=== PATIENT | male | born 1980 | race Caucasian/White ===

== ENCOUNTER → 2017-02-22 | Outpatient (CLI) | payer OTHER | END | disposition home or self-care (01) | LOC: C.RDSM 09:54 | PROVIDERS: ATTEND Orthopaedic Surgery Sports Medicine | DX: M70.21 Olecranon bursitis, right elbow (principal) ==

== ENCOUNTER → 2017-04-06 | Outpatient (CLI) | payer OTHER | END | disposition home or self-care (01) | LOC: C.RDSM 11:38 | PROVIDERS: ATTEND Orthopaedic Surgery Sports Medicine | DX: M25.561 Pain in right knee (principal) ==

== ENCOUNTER → 2017-04-11 | Outpatient (CLI) | payer OTHER ==
--- NOTE | 2017-04-11 08:25 | DIAGNOSTIC IMAGING REPORT ---
RIGHT KNEE MRI HISTORY: RT KNEE PAIN Right COMPARISON STUDY: Right knee 04/06/2017. TECHNIQUE: Multiplanar multisequence MRI of the right knee was performed according to standard department protocol without the use of contrast. FINDINGS: Menisci: The medial and lateral menisci are intact. Ligaments: The anterior and posterior cruciate ligaments are intact. The medial and lateral collateral ligaments are normal in appearance. Extensor mechanism: The quadriceps tendon and patellar ligament are intact. Articular cartilage and bone: The articular cartilage is intact, and normal marrow signal intensity is seen throughout the imaged osseous structures. Joint effusion: None. Soft tissues: Mild thickening of the distal iliotibial band best seen on axial image 11. However, there is no surrounding edema. IMPRESSION: 1. Mild thickening of the distal iliotibial band. 2. Otherwise, no evidence for internal derangement within the knee. Electronically signed by: Donavan Cuenca M.D. 04/11/2017 8:24 AM Dictated Date/Time: 04/11/2017 8:19 AM
== END | disposition home or self-care (01) ==
LOC: C.MRI 07:08
PROVIDERS: ATTEND Orthopaedic Surgery Sports Medicine
DX: M25.561 Pain in right knee (principal); M22.41 Chondromalacia patellae, right knee

== ENCOUNTER 2017-10-17 18:09 | Emergency (ER) | payer OTHER ==
[~2017-10-17] VITALS: Ht 188 cm; Wt 101.6 kg
[2017-10-17 18:28] VITALS: TEMP 36.7; Ht 188 cm; Wt 101.6 kg
[2017-10-17] MEDS: IBUPROFEN 800 MG TAB PO STA (18:58)
--- NOTE | 2017-10-17 19:12 | DIAGNOSTIC IMAGING REPORT ---
CT HEAD WITHOUT CONTRAST (CT) CLINICAL HISTORY: Head pain status post trauma COMPARISON STUDY: No previous studies for comparison. TECHNIQUE: Axial CT of the brain is performed from the vertex to the skull base. IV contrast was not administered for this examination. A dose lowering technique was utilized adhering to the principles of ALARA. CT DOSE: FINDINGS: No intra or extra-axial mass lesions are visualized. There is no CT evidence of acute cortical infarction. There is no evidence of midline shift. There is no acute hemorrhage. No calvarial fractures are visualized. There is no evidence of pathologic ventricular dilatation. There is no evidence of acute sinusitis IMPRESSION: Normal noncontrast head CT. Electronically signed by: Timmy Baker M.D. 10/17/2017 7:11 PM Dictated Date/Time: 10/17/2017 7:10 PM
--- NOTE | 2017-10-17 19:14 | EMERGENCY ROOM VISIT NOTE ---
History First contact with patient: 18:32 Chief Complaint: FACIAL PAIN/INJURY Stated Complaint: NOSE/CHEEK INJURY History of Present Illness The patient is a 37 year old male who presents to the Emergency Room with complaints of an injury to the right side of his face. He states that he was playing catch with his teenage son and was hit in the right side of the face with a baseball. There was no loss of consciousness. He reports a headache as well as swelling to the right side of the face. He states he has some numbness in the face. He initially had bleeding from the nose, but this has resolved. He has mild nausea. He denies vision changes, numbness or weakness. He has applied ice but not taken any medication for the pain. He rates his discomfort a 2/10. Review of Systems A complete 10 point review of systems was reviewed with the patient with pertinent positives and negatives as per history of present illness. All else were negative. Past Medical/Surgical History Medical Problems: (1) No significant past medical history Family History No pertinent family history Social History Smoking Status: Never Smoker Marital Status: Housing Status: lives with significant other Occupation Status: employed Current/Historical Medications No Active Prescriptions or Reported Meds Physical Exam Vital Signs Date Time Temp Pulse Resp B/P (MAP) Pulse Ox O2 Delivery O2 Flow Rate FiO2 10/17/17 20:22 72 18 144/87 99 10/17/17 18:28 36.7 86 16 162/92 98 Room Air Physical Exam VITALS: Vitals are noted on the nurse's note and reviewed by myself. Vital signs stable. GENERAL: This is a 37-year-old male, in no acute distress, nondiaphoretic, well- developed well-nourished. HEAD: Normocephalic atraumatic. FACE: There is some mild erythema and swelling to the right zygomatic and nasal area. EARS: External auditory canals clear, tympanic membranes pearly fox without erythema or effusion bilaterally. No hemotympanum. EYES: Pupils equal round and reactive to light and accommodation. Extraocular movements intact. MOUTH: Mucous membranes moist. NECK: Supple without nuchal rigidity. Cervical spine is nontender. HEART: Regular rate and rhythm without murmurs gallops or rubs. LUNGS: Clear to auscultation bilaterally without wheezes, rales or rhonchi. MUSCULOSKELETAL: Strength 5/5 throughout. NEURO: Patient was alert and oriented to person place and time. No focal neurological deficits. Medical Decision & Procedures ER Provider Diagnostic Interpretation: CT HEAD WITHOUT CONTRAST (CT) FINDINGS: No intra or extra-axial mass lesions are visualized. There is no CT evidence of acute cortical infarction. There is no evidence of midline shift. There is no acute hemorrhage. No calvarial fractures are visualized. There is no evidence of pathologic ventricular dilatation. There is no evidence of acute sinusitis IMPRESSION: Normal noncontrast head CT. CT FACIAL BONES-MXILLOFAC WITHOUT The pterygoid plates appear intact. The zygomatic arches appear intact. The globes appear intact. There is no evidence of orbital emphysema. The orbital gramajo and floor appear intact. The mandibular condyles appear intact. There is a nondisplaced right-sided nasal bone fracture. There is fluid and mucosal thickening within the maxillary sinuses. There is mucosal thickening within several ethmoid air cells as well as the sphenoid sinus. IMPRESSION: Nondisplaced right-sided nasal bone fracture Medications Administered Medications (Trade) Dose Ordered Sig/Darell Route Start Time Stop Time Status Last Admin Dose Admin Ibuprofen (Motrin Tab) 800 mg NOW STAT PO 10/17/17 18:52 10/17/17 18:53 DC 10/17/17 18:58 800 MG Medical Decision Differential diagnosis includes orbital floor fracture, nasal fracture, intracranial bleed, concussion, among others. The patient was evaluated as above. CT of the head and facial bones was performed and read by radiology. Patient has a small nondisplaced nasal bone fracture but no other facial fractures. Head CT was normal. He was treated with ibuprofen for pain. Conservative measures were discussed with the patient. He may follow-up with ENT electively if desired for cosmetic reasons. Conservative measures were discussed with the patient. He verbalized understanding and was discharged home in good condition. Medication Reconcilliation Current Medication List: was personally reviewed by mn Blood Pressure Screening Patient's blood pressure: Elevated blood pressure Blood pressure disposition: Elevated BP felt to be situational Impression Primary Impression: Nasal fracture Departure Information Dispostion Home / Self-Care Condition GOOD Prescriptions No Active Prescriptions or Reported Meds Referrals Ruddy Nur M.D. (PCP) Ashley Ulloa M.D. Patient Instructions [facility] Additional Instructions For pain control, you can use the following [id number] medicines (if >12 yo): - Regular strength (325mg/tab) Tylenol (acetaminophen) 2 tabs every 4-6 hours as needed. Do not exceed 12 tablets in a 24 hour period. Avoid taking more than 4 grams (4000 mg) of Tylenol per day. This includes any other sources of acetaminophen you may take on a regular basis. - Regular strength (200 mg/tab) Advil (ibuprofen) 1-2 tabs every 4-6 hours as needed. Do not exceed a dose of 3200 mg per day. Apply ice to the nose frequently to help with pain/swelling. Follow-up with ENT or plastic surgery in 2-3 weeks if there is any deformity. Return to the emergency department with any worsening or new/concerning symptoms. Problem Qualifiers Primary Impression: Nasal fracture Encounter type: initial encounter Fracture type: closed Qualified Codes: S02.2XXA - Fracture of nasal bones, initial encounter for closed fracture
--- NOTE | 2017-10-17 19:16 | DIAGNOSTIC IMAGING REPORT ---
CT FACIAL BONES-MXILLOFAC WITHOUT CT DOSE: 793.21 mGy.cm CLINICAL HISTORY: Facial pain status post trauma. Patient with baseball. COMPARISON STUDY: No previous studies for comparison. TECHNIQUE: Helical images were acquired in the transverse plane. The study was reviewed and analyzed on the independent 3-D workstation. A dose lowering technique was utilized adhering to the principles of ALARA. The pterygoid plates appear intact. The zygomatic arches appear intact. The globes appear intact. There is no evidence of orbital emphysema. The orbital gramajo and floor appear intact. The mandibular condyles appear intact. There is a nondisplaced right-sided nasal bone fracture. There is fluid and mucosal thickening within the maxillary sinuses. There is mucosal thickening within several ethmoid air cells as well as the sphenoid sinus. IMPRESSION: Nondisplaced right-sided nasal bone fracture Electronically signed by: Timmy Baker M.D. 10/17/2017 7:14 PM Dictated Date/Time: 10/17/2017 7:11 PM
[2017-10-17 20:22] VITALS: BP 144/87; PULSE 72; O2SAT 99
== END 2017-10-17 20:24 | disposition home or self-care (01) ==
LOC: C.EDB 18:10 → C.EDD 20:24
DX: S02.2XXA Fracture of nasal bones, initial encounter for closed fracture (principal); W21.03XA Struck by baseball, initial encounter